=== PATIENT | male | born 1975 | race Caucasian/White ===

== ENCOUNTER 2019-08-16 20:40 | Emergency (ER) | payer MEDICARE, OTHER ==
[~2019-08-16] VITALS: Ht 167.6 cm; Wt 63.5 kg
--- NOTE | 2019-08-16 20:55 | NUR ---
PT BIBRA C/O SI W/ A PLAN TO JUMP OFF THE BUILDING. PT ENDORSES HEARING VOICES. DENIES HI. PT AAOX4, RESPIRATIONS EVEN AND UNLABORED ON RA W NAD NOTED. PT CONNECTED TO THE MONITOR AND POX. PT CHANGED INTO GOWN, BELONGINGS PLACED TO LOCKER, AND PLACED ON SUICIDE PRECAUTIONS. SITTER AT BEDSIDE FOR SAFETY
--- NOTE | 2019-08-16 21:00 | NUR ---
URINE COLLECTED AND SENT TO LAB
--- NOTE | 2019-08-16 21:14 | NUR ---
PT BROUGHT TO BED 11, SITTER AT BS
[2019-08-16 21:23] LABS: BASOPHILS # (AUTO) 0.1 /CMM (0.0-0.2); BASOPHILS % (AUTO) 1.3 % (0.0-2.0); EOSINOPHILS % (AUTO) 3.4 % (0.0-6.0); HEMATOCRIT 39 % (39-51); HEMOGLOBIN 13.4 g/dL (13.5-17.5); LYMPHOCYTES # (AUTO) 1.2 /CMM (0.8-4.8); LYMPHOCYTES % (AUTO) 24.3 % (20.0-44.0); MEAN CORPUSCULAR HGB CONC 34 g/dl (31.0-36.0); MEAN CORPUSCULAR VOLUME 91 fL (80-96); MONOCYTES # (AUTO) 0.5 /CMM (0.1-1.30); MONOCYTES % (AUTO) 10.8 % (2.0-12.0); NEUTROPHILS % (AUTO) 60.2 % (43.0-81.0); PLATELET COUNT (AUTO) 165 /CMM (150-450); RED BLOOD CELL COUNT(AUTO) 4.28 MIL/uL (4.5-6.0); WHITE BLOOD COUNT (AUTO) 4.9 K/uL (4.3-11.0)
[2019-08-16 21:32] LABS: CALCIUM, SERUM 8.8 mg/dL (8.5-10.1); CARBON DIOXIDE 29 mmol/L (21-32); CHLORIDE 105 mmol/L (98-107); CREATININE 0.9 mg/dL (0.6-1.3); GLUCOSE 100 mg/dL (74-106); POTASSIUM 3.8 mmol/L (3.5-5.1); SODIUM SERUM 140 mmol/L (136-145); UREA NITROGEN, BLOOD 20 mg/dL (7-18)
[2019-08-16 21:38] LABS: ALANINE AMINOTRANSFERASE 41 U/L (12-78); ALBUMIN 4.2 g/dL (3.4-5.0); ALCOHOL, BLOOD < 3 mg/dL (0-0); ALKALINE PHOSPHATASE 55 U/L (46-116); ASPARTATE AMINOTRANSFERASE 34 U/L (15-37); BILIRUBIN,DIRECT 0.2 mg/dL (0.0-0.2); TOTAL PROTEIN, SERUM 7.6 g/dL (6.4-8.2)
[2019-08-16 21:42] LABS: APPEARANCE,URINE Clear (CLEAR); BILIRUBIN,URINE SMALL (NEGATIVE); BLOOD, URINE Negative Ery/uL (NEGATIVE); KETONES,URINE Negative (NEGATIVE); LEUKOCYTE ESTERASE ,URINE Negative (NEGATIVE); NITRITE, URINE Negative (NEGATIVE); PROTEIN,URINE Negative (NEGATIVE); UGLUCOSE Negative (NEGATIVE); UROBILINOGEN,URINE 0.2 EU/dL (0.2)
[2019-08-16 21:43] LABS: ACETAMINOPHEN < 2 ug/ml (10-30); SALICYLATE < 2.8 mg/dL (2.8-20.0)
[2019-08-16] MEDS ORDERED: ARIPIPRAZOLE 5 MG TABLET PO ONE (22:30)
[2019-08-16] MEDS ORDERED: ARIPIPRAZOLE 2 MG TABLET ONE (22:35)
--- NOTE | 2019-08-17 01:24 | NUR ---
PT RESTING COMFORTABLY IN BED. NO ACUTE DISTRESS NOTED. VSS. SITTER AT BEDSIDE FOR SAFETY
[2019-08-17 03:08] VITALS: BP 103/69
--- NOTE | 2019-08-17 03:26 | NUR ---
PT ACCEPTED TO [facility] BY DR GALLEGOS, UNIT 2, BED 203-C. # FOR REPORT [phone]
--- NOTE | 2019-08-17 03:32 | NUR ---
[facility] ETA AFTER 0800
--- NOTE | 2019-08-17 03:48 | NUR ---
[id number] [facility]
--- NOTE | 2019-08-17 05:30 | NUR ---
REPORT GIVEN TO JOE BECKHAM
--- NOTE | 2019-08-17 06:26 | NUR ---
REPORT GIVEN TO EMS, PT STABLE FOR TRANSFER
== END 2019-08-17 06:27 ==
LOC: ER 20:51
DX: R45.851 Suicidal ideations (principal); F31.9 Bipolar disorder, unspecified; F20.9 Schizophrenia, unspecified; R82.5 Elevated urine levels of drugs, medicaments and biological substances; Z04.6 Encounter for general psychiatric examination, requested by authority; Z59.0 Homelessness
CPT/HCPCS: 36415; 80048; 80076; 80305; 80307; 80329; 81001; 85025; 99285; G0480; 81000-TC

== ENCOUNTER 2020-12-03 17:20 | Emergency (ER) | payer OTHER | END 2020-12-03 18:12 | disposition left against medical advice (07) | LOC: ER 17:20 | DX: Z53.21 Procedure and treatment not carried out due to patient leaving prior to being seen by health care provider (principal); F32.9 Major depressive disorder, single episode, unspecified ==